=== PATIENT | male | born 2005 | race Caucasian/White ===

== ENCOUNTER 2023-04-22 16:45 | Emergency (ER) | payer OTHER ==
[2023-04-22] MEDS ORDERED: Ibuprofen 400 MG Tab PO ONE (18:49)
== END 2023-04-22 19:39 | disposition home or self-care (01) ==
LOC: JP.ED 16:45
DX: B34.9 Viral infection, unspecified (principal); Z20.822 Contact with and (suspected) exposure to COVID-19
CPT/HCPCS: 87635; 87651; 99282; 99283; A9270; U0002